=== PATIENT | female | born 2005 | race Caucasian/White ===

== ENCOUNTER 2024-02-18 08:04 | Day surgery (SDC) | payer OTHER ==
[~2024-02-18] VITALS: Ht 160 cm; Wt 64.4 kg
[~2024-02-18 08:04] MED LIST: FERR325T19 PO; FERR325T3 PO; NS 1,000 ML IV ONE; VITA100093 PO
[2024-02-18] MEDS ORDERED: fentaNYL 100 MCG/2 ML INJECTION As Ordered ONE (09:41)
[2024-02-18] MEDS ORDERED: LIDOCAINE 2% 100MG/5ML SDV (FOR ANES.) As Ordered ONE (09:41)
[2024-02-18] MEDS ORDERED: propofoL 500 MG/50 ML VIAL As Ordered ONE (09:41)
[2024-02-18 10:58] VITALS: BP 121/79; TEMP 96.6; O2SAT 100
== END 2024-02-18 10:50 | disposition home or self-care (01) ==
LOC: M OPP 08:04
PROVIDERS: ATTEND Internal Medicine Gastroenterology
DX: D50.9 Iron deficiency anemia, unspecified (principal); K29.51 Unspecified chronic gastritis with bleeding; K64.8 Other hemorrhoids; R10.31 Right lower quadrant pain; Q43.8 Other specified congenital malformations of intestine; Z88.1 Allergy status to other antibiotic agents; F17.290 Nicotine dependence, other tobacco product, uncomplicated
CPT/HCPCS: 43239; 45378; 88305; J3010

== ENCOUNTER → 2024-05-09 | Outpatient (CLI) | payer OTHER ==
[~2024-05-09] MED LIST changes: +METHACHOLINE KIT (6 VIAL.NEB PREMIX) INH ONE; -NS 1,000 ML IV ONE
== END ==
LOC: M CARPUL 10:23
PROVIDERS: ATTEND Internal Medicine Critical Care Medicine
DX: R06.00 Dyspnea, unspecified (principal)
CPT/HCPCS: 94070; J7674

== ENCOUNTER 2024-06-28 01:08 | Emergency (ER) | payer OTHER ==
[~2024-06-28] VITALS: Ht 160 cm; Wt 66.7 kg
[~2024-06-28 01:08] MED LIST changes: -METHACHOLINE KIT (6 VIAL.NEB PREMIX) INH ONE
[2024-06-28 01:09] VITALS: TEMP 97.5
[2024-06-28 01:40] LABS: BASO # 0.1 10^3/uL (0.0-0.2); BASO % 0.6 % (0.0-1.0); EOS # 0.2 10^3/uL (0.0-0.5); EOS % 2.4 % (0.0-3.0); HEMATOCRIT 34.3 % (36.0-47.0); LYMPH # 2.6 10^3/uL (1.5-5.0); LYMPH % 32.7 % (24.0-44.0); MEAN CORPUSCULAR HEMOGLOBIN 33.1 pg (27.0-33.0); MEAN CORPUSCULAR VOLUME 94.5 fl (80.0-96.0); MONO # 0.7 10^3/uL (0.0-0.8); MONO % 8.4 % (2.0-8.0); NEUTROPHILS # 4.4 10^3/uL (1.5-8.5); NEUTROPHILS % 55.6 % (36.0-66.0); PLATELET COUNT, AUTOMATED 296 10^3/uL (150-450); RED BLOOD COUNT 3.63 10^6/uL (4.00-5.40); WHITE BLOOD COUNT 7.8 10^3/uL (4.0-10.0)
[2024-06-28] MEDS: ACETAMINOPHEN 500 MG TAB PO ONE (02:03)
[2024-06-28 02:07] LABS: CK-MB VALUE MASS < 1.0 NG/ML (<3.6)
[2024-06-28 02:16] LABS: CPK CREATINE PHOSPHOKINASE 64 U/L (34-145); MB/CK RELATIVE INDEX 1.56 (< OR =4)
[2024-06-28 03:07] LABS: BLOOD UREA NITROGEN 11 MG/DL (9-23); CALCIUM LEVEL 9.1 MG/DL (8.5-10.1); CARBON DIOXIDE LEVEL 26 MMOL/L (20-31); CHLORIDE LEVEL 108 MMOL/L (98-107); CK-MB VALUE MASS < 1.0 NG/ML (<3.6); CPK CREATINE PHOSPHOKINASE 55 U/L (34-145); CREATININE FOR GFR 0.78 MG/DL (0.55-1.30); GLOMERULAR FILTRATION RATE > 60.0 (>60); GLUCOSE, FASTING 95 MG/DL (60-100); MB/CK RELATIVE INDEX 1.81 (< OR =4); POTASSIUM SERUM 3.6 MMOL/L (3.5-5.1); SODIUM LEVEL 139 MMOL/L (136-145)
[2024-06-28 03:46] LABS: MAGNESIUM LEVEL 2.1 MG/DL (1.8-2.4)
[2024-06-28 04:30] VITALS: BP 99/65; O2SAT 99
== END 2024-06-28 04:39 | disposition home or self-care (01) ==
LOC: M ED 01:08
DX: R07.9 Chest pain, unspecified (principal); I45.10 Unspecified right bundle-branch block; F17.200 Nicotine dependence, unspecified, uncomplicated; Z88.1 Allergy status to other antibiotic agents; Z79.899 Other long term (current) drug therapy

== ENCOUNTER → 2024-08-25 | Outpatient (REF) | LOC: M PLAIMG 09:09 | PROVIDERS: ATTEND Internal Medicine | DX: R06.02 Shortness of breath (principal) ==